=== PATIENT | female | born 1980 | race Caucasian/White ===

== ENCOUNTER 2019-04-11 09:16 | Inpatient (IN) | payer BC ==
[2019-04-11] MEDS ORDERED: Tranexamic Acid 1,000 MG in Sodium Chloride 0.9% 100 ML IV PRN (09:32)
[2019-04-11] MEDS ORDERED: Sodium Chloride 0.9% 10 ML Syringe FLUSH PRN (09:32)
[2019-04-11] MEDS ORDERED: Ondansetron 4 MG/2 ML SDV IVPUSH PRN (09:32)
[2019-04-11] MEDS ORDERED: Lactated Ringers 1,000 ML IV SCH ×2 (09:45)
[2019-04-11] MEDS ORDERED: Oxytocin/Normal Saline 30 UNIT/500 ML BAG IV SCH (09:45)
[2019-04-11] MEDS ORDERED: Citric Acid/Sodium Citrate Solution 30 ML Cup PO ONE (10:00)
[2019-04-11] MEDS ORDERED: ceFAZolin 2 GM in Premix Bag 1 BAG IV ONE (10:00)
[2019-04-11] MEDS ORDERED: Oxytocin/Normal Saline 60 UNIT/1,000 ML BAG ONE (10:52)
--- NOTE | 2019-04-11 13:49 | PCM.PRNOTE ---
- Free Text/Narrative Note: Section Operative Report Date of Surgery: 04/11/19 Surgeon: Radha Lamar MD Salon Receptionist: Misty Riley MD Pre-Operative Diagnosis: History of section, declined Post-Operative Diagnosis: Same Procedure Performed: Repeat low transverse section Anesthesia: Spinal EBL: 800 mL IVF: 1400 mL Drains: Malave catheter with 250 mL of urine output Specimens: None Complications: None apparent Findings: Normal uterus, tubes, and ovaries. Indication and Consent: The patient presented to floor today for scheduled at term due to hx of prior and desire for elective repeat . The patient understood that the risks of section include, but are not limited to, visceral or vascular injury, infection, blood loss and need for blood transfusion, prolonged hospitalization, and reoperation. The patient again stated understanding and desired to proceed. All questions were answered. Procedure in Detail: The patient was taken to the operating room where spinal anesthesia was placed and found to be adequate. 2 grams of cefazolin (Ancef) were given for infection prophylaxis. She was then prepped and draped in routine fashion in dorsal supine position with a left ureña tilt. Malave catheter and pneumoboots were placed. A Pfannenstiel skin incision was made with a scalpel. The incision was carried down to the fascia sharply. The fascia was incised and extended laterally. The inferior aspect of the fascia was grasped with Virgil clamps; the underlying rectus muscle and pyramidalis was dissected off with sharp and blunt technique. In a similar fashion, the superior aspect of the fascia was elevated with Virgil clamps and the rectus muscle was dissected off. Hemostasis was achieved with the Bovie. The rectus musculature was in the midline down to the level of the pubic symphysis. Pre-peritoneal fatty tissue was bluntly dissected to expose the peritoneum. The peritoneum was found to be free of adherent bowel or bladder tissue and entered bluntly. The peritoneal opening was then extended superiorly and inferiorly to the bladder reflection with good visualization of the bladder. The Jaime retractor was inserted. Intraabdominal survey revealed scant, clear peritoneal fluid and thinned-out lower uterine segment. The vesicouterine peritoneum was opened with a pickup and mets, and the bladder flap was developed. The bladder blade was repositioned to keep the bladder out of the operative field. The lower uterine segment was incised with a scalpel. The amniotic sac was ruptured with an Allis clamp and clear fluid was noted. The uterine incision was extended bluntly with lateral and upward traction. The fetus was in cephalic position. The head was elevated out of the maternal pelvis with special attention paid to avoid using the uterine incision as a fulcrum. Gentle fundal pressure was applied once the head was brought into the incision. A vacuum was applied to the head. The was delivered with 1 pull with minimal difficulty. Bulb suctioning of the 's nose and mouth was performed on the operative field. Cord blood was collected. The cord was clamped and cut in standard fashion, and the infant was handed over to the awaiting nursery staff. IV oxytocin was initiated to facilitate uterine contractions. The placenta was delivered intact with manual message of the uterine fundus along with gentle cord traction. The uterus was then exteriorized. The inside of the uterus was gently wiped with a lap sponge to assure complete removal of remaining products of conception. The uterine incision was closed with 0 - Vicryl suture in a running locked fashion. A second imbricating layer of 0- Monocryl was also placed. The incision was inspected and hemostasis was achieved. The ovaries and tubes were visualized and found to be normal. The uterus, tubes, and ovaries were returned to the abdominal cavity. The blood clots and fluid were wiped out of the abdomen and pelvis with moist laparotomy sponges. The uterine incision was re-inspected along with all other incised surfaces and good hemostasis was confirmed. The Jaime retractor was removed. The fascia was then closed with 2-0 looped PDS suture with care not to include any underlying abdominal contents. The skin was closed with 4-0 Monocryl suture on a Gaetano needle in a subcuticular fashion. Sponge and instrument counts were reported as correct times two. Pt tolerated procedure well and was taken to PACU in stable condition. MD Radha Dior MD
--- NOTE | 2019-04-11 13:51 | PCM.DEL ---
L & D Note - General Info Date of Service: 04/11/19 Mother's Due Date: 04/18/19 - Delivery Note Delivery Outcome: Livebirth Infant Delivery Method: Repeat Delivery Mode: Vacuum Extraction Presentation: Vertex Nuchal Cord: None Anesthesia Type: Spinal Laceration: None Placenta: Intact Cord: 3 Vessels Estimated Blood Loss: 800 : Stimulated, Warmed Provider: Radha Lamar Score 1 min: 9 Score 5 min: 9 Delivery Comments (Free Text/Narrative):: Please see procedure note - General Info Date of Service: 04/11/19 - Patient Data Vitals - Most Recent: Last Vital Signs Temp 36.1 C 04/11/19 13:25 Pulse 55 L 04/11/19 13:45 Resp 10 L 04/11/19 13:45 BP 135/72 04/11/19 13:45 Pulse Ox 100 04/11/19 13:45 Weight - Most Recent: 99.337 kg I&O - Last 24 Hours: Intake & Output 04/10/19 04/11/19 04/11/19 22:59 06:59 14:59 Intake Total 50 Output Total 75 Balance -25 Lab Results Last 24 Hours: Laboratory Results - last 24 hr 04/11/19 04/11/19 Range/Units 09:36 09:36 WBC 9.2 (5.0-10.0) 10^3/uL RBC 4.33 (4.2-5.4) 10^6/uL Hgb 13.0 (12.0-16.0) g/dL Hct 39.7 (37.0-47.0) % MCV 91.7 (80-100) fL MCH 30.0 (27.0-34.0) pg MCHC 32.7 L (33.0-35.0) g/dL Plt Count 251 (150-450) 10^3/uL Neut % (Auto) 71.9 (42.2-75.2) % Lymph % (Auto) 13.8 L (20.5-50.1) % [place] % (Auto) 12.8 H (2-8) % Eos % (Auto) 1.2 (1.0-3.0) % Baso % (Auto) 0.3 (0.0-1.0) % Blood Type A POSITIVE Gel Antibody Screen Negative Med Orders - Current: Current Medications Tranexamic Acid 1,000 mg/ (Sodium Chloride) 110 mls @ 660 mls/hr IV ONETIME PRN PRN Reason: Bleeding Oxytocin/Sodium Chloride (Pitocin In Ns 30 Unit/500 Ml) 30 unit in 500 mls @ 2 mls/hr IV TITRATE [facility]; Protocol Last Admin: 04/11/19 13:24 Dose: 2 munits/min, 2 mls/hr Lactated Ringer's (Ringers, Lactated) 1,000 mls @ 125 mls/hr IV ASDIRECTED [facility] Last Admin: 04/11/19 11:00 Dose: 125 mls/hr Lactated Ringer's (Ringers, Lactated) 1,000 mls @ 500 mls/hr IV .BOLUS [facility] Last Admin: 04/11/19 10:10 Dose: 500 mls/hr Ondansetron HCl (Zofran) 8 mg IVPUSH Q6H PRN PRN Reason: Nausea/Vomiting Sodium Chloride (Saline Flush) 10 ml FLUSH ASDIRECTED PRN PRN Reason: Keep Vein Open Discontinued Medications Citric Acid/Sodium Citrate (Bicitra Solution) 30 ml PO ONETIME ONE Stop: 04/11/19 10:01 Last Admin: 04/11/19 11:01 Dose: 30 ml Cefazolin Sodium/Dextrose 2 gm (/ Premix) 50 mls @ 100 mls/hr IV ONETIME ONE Stop: 04/11/19 10:29 Last Admin: 04/11/19 11:02 Dose: 100 mls/hr Oxytocin/Sodium Chloride (Pitocin In Ns 30 Unit/500 Ml) Confirm Administered Dose 60 unit in 1,000 mls @ as directed .ROUTE .STK-MED ONE Stop: 04/11/19 10:53 - Problem List & Annotations (1) History of delivery SNOMED Code(s): 772464809 Code(s): Z98.891 - HISTORY OF UTERINE SCAR FROM PREVIOUS SURGERY Status: Acute Current Visit: Yes (2) History of miscarriage SNOMED Code(s): 134238118 Code(s): Z87.59 - PERSONAL HISTORY OF COMP OF PREG, CHLDBRTH AND THE PUERP Status: Acute Current Visit: Yes (3) Advanced maternal age (AMA) in SNOMED Code(s): 035848325 Code(s): VLJ2207 - Status: Acute Current Visit: Yes - Problem List Review Problem List Initiated/Reviewed/Updated: Yes - My Orders Last 24 Hours: My Active Orders 04/11/19 09:32 Patient Status [ADT] Routine Notify Provider Vital Signs OB [RC] ASDIRECTED POC Labs [RC] ASDIRECTED RT Incentive Spirometry [RC] ASDIRECTED Vital Signs [RC] 00,04,08,12,16,20 Ondansetron [Zofran] 8 mg IVPUSH Q6H PRN Sodium Chloride 0.9% [Saline Flush] 10 ml FLUSH ASDIRECTED PRN Tranexamic Acid [Cyklokapron] 1,000 mg Sodium Chloride 0.9% [Normal Saline] 100 ml IV ONETIME Peripheral IV Insertion Adult [OM.PC] Routine Schedule Procedure [COMM] Per Unit Routine Resuscitation Status Routine 04/11/19 09:33 Peripheral IV Care [RC] 06,14,22 04/11/19 09:45 Lactated Ringers [Ringers, Lactated] 1,000 ml IV .BOLUS Lactated Ringers [Ringers, Lactated] 1,000 ml IV ASDIRECTED Oxytocin/Normal Saline [Pitocin in NS 30 UNIT/500 ML] 30 unit in 500 ml IV TITRATE 04/11/19 Breakfast Nothing Per Oral Diet [DIET] 04/11/19 Dinner Nothing Per Oral Diet [DIET] 04/11/19 Lunch Nothing Per Oral Diet [DIET] - Assessment Assessment:: 38-year-old, now at 39w0d status post repeat LTCS - Plan Plan:: 1. Initiate routine postoperative orders 2. Plans to breastfeed 3. Anticipate discharge 04/14/19 Radha Lamar MD
[2019-04-11] MEDS ORDERED: ePHEDrine 50 MG/ML SDV IVPUSH PRN (13:52)
[2019-04-11] MEDS ORDERED: Naloxone 2 MG/2 ML Syringe IVPUSH PRN (13:52)
[2019-04-11] MEDS ORDERED: diphenhydrAMINE 50 MG/ML SDV IVPUSH PRN (13:52)
[2019-04-11] MEDS ORDERED: Misoprostol 400 MCG (4 X 100 MCG TAB) RECTAL PRN (13:52)
[2019-04-11] MEDS ORDERED: Methylergonovine 0.2 MG/1 ML Amp IM PRN (13:52)
[2019-04-11] MEDS ORDERED: Carboprost Tromethamine 250 MCG/1 ML Amp IM PRN (13:52)
[2019-04-11] MEDS ORDERED: Acetaminophen/oxyCODONE 325-5 MG Tab PO PRN (13:52)
[2019-04-11] MEDS ORDERED: Ondansetron 4 MG/2 ML SDV IV PRN (13:52)
[2019-04-11] MEDS ORDERED: Acetaminophen 325 MG Tab PO PRN (13:52)
[2019-04-11] MEDS ORDERED: Famotidine 20 MG/2 ML SDV IVPUSH ONE (14:43)
[2019-04-11] MEDS ORDERED: Promethazine 25 MG/ML SDV IM ONE (14:44)
[2019-04-11] MEDS: Simethicone 80 MG Tab.Chew PO SCH ×2 (17:02→20:32)
[2019-04-11] MEDS: Lactated Ringers 1,000 ML IV SCH (17:44)
[2019-04-11] MEDS: Ketorolac 30 MG/ML SDV IVPUSH SCH (20:32)
[2019-04-11] MEDS: Docusate Sodium 100 MG Cap PO PRN (20:32)
[2019-04-12] MEDS: Ketorolac 30 MG/ML SDV IVPUSH SCH ×2 (01:50→08:50)
[2019-04-12] MEDS: Lactated Ringers 1,000 ML IV SCH (01:51)
--- NOTE | 2019-04-12 07:29 | PCM.PNPP ---
- General Info Date of Service: 04/12/19 Subjective Update: POD#1 status post repeat section. Patient is doing well. Had quite a bit of vomiting yesterday--this improved with administration of phenergan. Minimal pain this morning, just sore. Tolerating diet well. Has not been out of bed yet. Urine output has been borderline since surgery but has improved the past few hours. No fever or chills. is going well. - Review of Systems General: Reports: Fatigue HEENT: Reports: No Symptoms Pulmonary: Reports: No Symptoms Cardiovascular: Reports: No Symptoms Gastrointestinal: Reports: Abdominal Pain Genitourinary: Reports: No Symptoms Musculoskeletal: Reports: No Symptoms Skin: Reports: No Symptoms - General Info Date of Service: 04/12/19 - Patient Data Vital Signs - Most Recent: Last Vital Signs Temp 36.8 C 04/12/19 04:00 Pulse 73 04/12/19 04:00 Resp 16 04/12/19 04:00 BP 106/65 04/12/19 04:00 Pulse Ox 96 04/12/19 04:00 Weight - Most Recent: 99.337 kg I&O - Last 24 Hours: Intake & Output 04/11/19 04/12/19 04/12/19 22:59 06:59 14:59 Output Total 625 525 Balance -625 -525 Lab Results - Last 24 Hours: Laboratory Results - last 24 hr 04/11/19 04/11/19 Range/Units 09:36 09:36 WBC 9.2 (5.0-10.0) 10^3/uL RBC 4.33 (4.2-5.4) 10^6/uL Hgb 13.0 (12.0-16.0) g/dL Hct 39.7 (37.0-47.0) % MCV 91.7 (80-100) fL MCH 30.0 (27.0-34.0) pg MCHC 32.7 L (33.0-35.0) g/dL Plt Count 251 (150-450) 10^3/uL Neut % (Auto) 71.9 (42.2-75.2) % Lymph % (Auto) 13.8 L (20.5-50.1) % [place] % (Auto) 12.8 H (2-8) % Eos % (Auto) 1.2 (1.0-3.0) % Baso % (Auto) 0.3 (0.0-1.0) % Blood Type A POSITIVE Gel Antibody Screen Negative Med Orders - Current: Current Medications Acetaminophen (Tylenol) 650 mg PO Q6H PRN PRN Reason: mild pain or fever Carboprost Tromethamine (Hemabate Ds) 250 mcg IM ONETIME PRN PRN Reason: Bleeding Diphenhydramine HCl (Benadryl) 25 mg IVPUSH Q6H PRN PRN Reason: Itching or Nausea Docusate Sodium (Colace) 100 mg PO Q12H PRN PRN Reason: Constipation Last Admin: 04/11/19 20:32 Dose: 100 mg Ephedrine Sulfate (Ephedrine Sulfate) 5 mg IVPUSH SEECOMMENT PRN PRN Reason: Other Tranexamic Acid 1,000 mg/ (Sodium Chloride) 110 mls @ 660 mls/hr IV ONETIME PRN PRN Reason: Bleeding Oxytocin/Sodium Chloride (Pitocin In Ns 30 Unit/500 Ml) 30 unit in 500 mls @ 2 mls/hr IV TITRATE [facility]; Protocol Last Titration: 04/11/19 16:25 Dose: 0 munits/min, 0 mls/hr Lactated Ringer's (Ringers, Lactated) 1,000 mls @ 125 mls/hr IV ASDIRECTED [facility] Last Admin: 04/12/19 01:51 Dose: 125 mls/hr Ibuprofen (Motrin) 800 mg PO Q8H PRN PRN Reason: mild pain or fever Ketorolac Tromethamine (Toradol) 15 mg IVPUSH Q6H [facility] Stop: 04/12/19 08:01 Last Admin: 04/12/19 01:50 Dose: 15 mg Methylergonovine Maleate (Methergine) 0.2 mg IM ONETIME PRN PRN Reason: Excessive Vaginal Bleeding Misoprostol (Cytotec) 800 mcg RECTAL ASDIRECTED PRN PRN Reason: Excessive bleeding Naloxone HCl (Narcan) 0.1 mg IVPUSH SEECOMMENT PRN PRN Reason: Respiratory Depression Ondansetron HCl (Zofran) 4 mg IV Q4H PRN PRN Reason: Nausea/Vomiting Oxycodone/Acetaminophen (Percocet 325-5 Mg) 1 tab PO Q4H PRN PRN Reason: Pain (moderate 4-6) Oxycodone/Acetaminophen (Percocet 325-5 Mg) 2 tab PO Q4H PRN PRN Reason: Pain (moderate 4-6) Prenat Multivit/[employer]/Iron/Folic Ac ( Plus Iron) 1 each PO DAILY [facility] Simethicone (Simethicone) 160 mg PO QID [facility] Last Admin: 04/11/19 20:32 Dose: 160 mg Sodium Chloride (Saline Flush) 10 ml FLUSH ASDIRECTED PRN PRN Reason: Keep Vein Open Discontinued Medications Citric Acid/Sodium Citrate (Bicitra Solution) 30 ml PO ONETIME ONE Stop: 04/11/19 10:01 Last Admin: 04/11/19 11:01 Dose: 30 ml Famotidine (Pepcid) 20 mg IVPUSH ONETIME ONE Stop: 04/11/19 14:44 Last Admin: 04/11/19 15:00 Dose: 20 mg Cefazolin Sodium/Dextrose 2 gm (/ Premix) 50 mls @ 100 mls/hr IV ONETIME ONE Stop: 04/11/19 10:29 Last Admin: 04/11/19 11:02 Dose: 100 mls/hr Lactated Ringer's (Ringers, Lactated) 1,000 mls @ 125 mls/hr IV ASDIRECTED [facility] Last Admin: 04/11/19 11:00 Dose: 125 mls/hr Lactated Ringer's (Ringers, Lactated) 1,000 mls @ 500 mls/hr IV .BOLUS [facility] Last Admin: 04/11/19 10:10 Dose: 500 mls/hr Oxytocin/Sodium Chloride (Pitocin In Ns 30 Unit/500 Ml) Confirm Administered Dose 60 unit in 1,000 mls @ as directed .ROUTE .STK-MED ONE Stop: 04/11/19 10:53 Ondansetron HCl (Zofran) 8 mg IVPUSH Q6H PRN PRN Reason: Nausea/Vomiting Promethazine HCl (Phenergan) 12.5 mg IM ONETIME ONE Stop: 04/11/19 14:45 Last Admin: 04/11/19 15:01 Dose: 12.5 mg - Infant Interaction Infant Disposition, : [place] in Room with Family Feeding: Breastfed ; Nursed Well Support Person: - Recovery Exam Fundal Tone: Firm Fundal Level: 2 Fingerbreadths Below Umbilicus Fundal Placement: Midline Lochia Amount: Small Lochia Color: Rubra/Red Perineum Description: Intact, Minimal Bruising/Swelling Episiotomy/Laceration: None Bladder Status: Indwelling Catheter in Place Urinary Elimination: Indwelling Catheter - Exam General: Alert, Oriented HEENT: Mucous Membr. Moist/[place] Lungs: Clear to Auscultation, Normal Respiratory Effort Cardiovascular: Regular Rate, Regular Rhythm, No Murmurs GI/Abdominal Exam: Soft, Tender Extremities: Pedal Edema (1+ bilaterally) Skin: Warm, Dry, Intact Wound/Incisions: Drainage (Unchanged from marked area) - Problem List & Annotations (1) History of delivery SNOMED Code(s): 771280516 Code(s): Z98.891 - HISTORY OF UTERINE SCAR FROM PREVIOUS SURGERY Status: Acute Current Visit: Yes (2) History of miscarriage SNOMED Code(s): 759675344 Code(s): Z87.59 - PERSONAL HISTORY OF COMP OF PREG, CHLDBRTH AND THE PUERP Status: Acute Current Visit: Yes (3) Advanced maternal age (AMA) in SNOMED Code(s): 065814337 Code(s): HPC9916 - Status: Acute Current Visit: Yes - Problem List Review Problem List Initiated/Reviewed/Updated: Yes - My Orders Last 24 Hours: My Active Orders 04/11/19 09:32 Patient Status [ADT] Routine Notify Provider Vital Signs OB [RC] ASDIRECTED POC Labs [RC] ASDIRECTED RT Incentive Spirometry [RC] ASDIRECTED Vital Signs [RC] 00,04,08,12,16,20 Sodium Chloride 0.9% [Saline Flush] 10 ml FLUSH ASDIRECTED PRN Tranexamic Acid [Cyklokapron] 1,000 mg Sodium Chloride 0.9% [Normal Saline] 100 ml IV ONETIME Peripheral IV Insertion Adult [OM.PC] Routine Resuscitation Status Routine 04/11/19 09:33 Peripheral IV Care [RC] 06,14,22 04/11/19 09:45 Oxytocin/Normal Saline [Pitocin in NS 30 UNIT/500 ML] 30 unit in 500 ml IV TITRATE 04/11/19 13:52 Antiembolic Devices [RC] 08,20 Bedrest [RC] ASDIRECTED Communication Order [RC] PER UNIT ROUTINE Communication Order [RC] PER UNIT ROUTINE Communication Order [RC] Per Unit Routine Intake and Output [RC] Q8H Notify Provider Intake and Out [RC] ASDIRECTED RT Incentive Spirometry [RC] Q2HWA Urinary Catheter Removal [RC] 1200 Vital Signs [RC] 00,04,08,12,16,20 Consult to Food And Beverage Attendant [CONS] Routine Acetaminophen [Tylenol] 650 mg PO Q6H PRN Acetaminophen/oxyCODONE [Percocet 325-5 MG] 1 tab PO Q4H PRN Acetaminophen/oxyCODONE [Percocet 325-5 MG] 2 tab PO Q4H PRN Carboprost Tromethamine [Hemabate DS] 250 mcg IM ONETIME PRN Docusate Sodium [Colace] 100 mg PO Q12H PRN Methylergonovine [Methergine] 0.2 mg IM ONETIME PRN Naloxone [Narcan] 0.1 mg IVPUSH SEECOMMENT PRN Ondansetron [Zofran] 4 mg IV Q4H PRN diphenhydrAMINE [Benadryl] 25 mg IVPUSH Q6H PRN ePHEDrine [ePHEDrine sulfate] 5 mg IVPUSH SEECOMMENT PRN miSOPROStoL [Cytotec] 800 mcg RECTAL ASDIRECTED PRN Antiembolic Hose [OM.PC] Per Unit Routine Assess Lochia [WOMSER] Per Unit Routine Assess Uterine Involution [WOMSER] Per Unit Routine Breast Pump [WOMSER] Per Unit Routine Sequential Compression Device [OM.PC] Per Unit Routine 04/11/19 14:00 Lactated Ringers [Ringers, Lactated] 1,000 ml IV ASDIRECTED 04/11/19 17:00 Simethicone 160 mg PO QID 04/11/19 20:00 Ketorolac [Toradol] 15 mg IVPUSH Q6H 04/11/19 Breakfast Clear Liquid Diet [DIET] Nothing Per Oral Diet [DIET] 04/11/19 Lunch Nothing Per Oral Diet [DIET] 04/12/19 09:00 Vit with Ca/FA/Iron [ Plus Iron] 1 each PO DAILY 04/12/19 16:00 Ibuprofen [Motrin] 800 mg PO Q8H PRN 04/13/19 07:00 CBC W/O DIFF,HEMOGRAM [HEME] Routine - Assessment Assessment:: 38-year-old, now at 39w0d POD#1 status post repeat LTCS - Plan Plan:: 1. Continue routine postoperative orders 2. 3. Monitor urine output for 2-3 more hours before removing garcia 4. CBC tomorrow AM 5. Anticipate discharge 04/14/19 Radha Lamar MD
[2019-04-12] MEDS: Simethicone 80 MG Tab.Chew PO SCH ×4 (08:50→21:17)
[2019-04-12] MEDS: Docusate Sodium 100 MG Cap PO PRN ×2 (08:51→21:17)
[2019-04-12] MEDS: Prenatal Multivitamin with Calcium/Folic Acid/Iron Tab PO SCH (08:51)
[2019-04-12] MEDS: Ibuprofen 800 MG Tab PO PRN (17:31)
[2019-04-12] MEDS: Acetaminophen/oxyCODONE 325-5 MG Tab PO PRN (21:18)
[2019-04-13] MEDS: Ibuprofen 800 MG Tab PO PRN ×3 (01:53→18:07)
[2019-04-13] MEDS: Acetaminophen/oxyCODONE 325-5 MG Tab PO PRN ×5 (01:54→20:20)
[2019-04-13] MEDS: Docusate Sodium 100 MG Cap PO PRN ×2 (08:50→20:20)
[2019-04-13] MEDS: Prenatal Multivitamin with Calcium/Folic Acid/Iron Tab PO SCH (08:50)
[2019-04-13] MEDS: Simethicone 80 MG Tab.Chew PO SCH ×4 (08:50→20:20)
[2019-04-13] MEDS ORDERED: Oxytocin/Normal Saline 30 UNIT/500 ML BAG IV ONE (14:49)
[2019-04-14] MEDS ORDERED: Famotidine 20 MG/2 ML SDV ONE (00:16)
[2019-04-14] MEDS: Ibuprofen 800 MG Tab PO PRN (02:04)
[2019-04-14] MEDS: Acetaminophen/oxyCODONE 325-5 MG Tab PO PRN ×2 (02:05→08:46)
[2019-04-14] MEDS: Prenatal Multivitamin with Calcium/Folic Acid/Iron Tab PO SCH (08:45)
[2019-04-14] MEDS: Simethicone 80 MG Tab.Chew PO SCH (08:45)
[2019-04-14] MEDS: Docusate Sodium 100 MG Cap PO PRN (08:46)
[2019-04-14] MEDS ORDERED: Ondansetron 4 MG/2 ML SDV IV ONE (10:28)
[2019-04-14] MEDS ORDERED: Dexamethasone 4 MG/ML SDV IV ONE (10:28)
[2019-04-14] MEDS ORDERED: Lactated Ringers 1,000 ML IV ONE (10:28)
[2019-04-14] MEDS ORDERED: ePHEDrine 50 MG/ML SDV IV ONE (10:28)
[2019-04-14] MEDS ORDERED: Ketorolac 30 MG/ML SDV IVPUSH ONE (10:28)
--- NOTE | 2019-04-14 15:40 | PCM.PNPP ---
- General Info Date of Service: 04/14/19 Subjective Update: PPD#2 from repeat section at 39w0d. Doing well. Has been out of bed but has not showered. Is urinating without difficulty. Passing small amounts of gas. Vaginal bleeding is minimal. Ambulating without difficulty. Tolerating a general diet. No fever or chills. is going well. Functional Status: Reports: Pain Controlled, Tolerating Diet, Ambulating, Urinating. Denies: New Symptoms - Review of Systems General: Reports: No Symptoms HEENT: Reports: No Symptoms Pulmonary: Reports: No Symptoms Cardiovascular: Reports: No Symptoms Gastrointestinal: Reports: No Symptoms Genitourinary: Reports: No Symptoms Musculoskeletal: Reports: Back Pain Skin: Reports: No Symptoms Neurological: Reports: No Symptoms - General Info Date of Service: 04/13/19 - Patient Data Vital Signs - Most Recent: Last Vital Signs Temp 36.9 C 04/14/19 08:00 Pulse 88 04/14/19 08:00 Resp 16 04/14/19 08:00 BP 126/71 04/14/19 08:00 Pulse Ox 99 04/13/19 02:13 Weight - Most Recent: 99.337 kg Med Orders - Current: Current Medications Discontinued Medications Acetaminophen (Tylenol) 650 mg PO Q6H PRN PRN Reason: mild pain or fever Carboprost Tromethamine (Hemabate Ds) 250 mcg IM ONETIME PRN PRN Reason: Bleeding Citric Acid/Sodium Citrate (Bicitra Solution) 30 ml PO ONETIME ONE Stop: 04/11/19 10:01 Last Admin: 04/11/19 11:01 Dose: 30 ml Dexamethasone (Dexamethasone) 8 mg IV .STK-MED ONE Stop: 04/14/19 10:29 Diphenhydramine HCl (Benadryl) 25 mg IVPUSH Q6H PRN PRN Reason: Itching or Nausea Docusate Sodium (Colace) 100 mg PO Q12H PRN PRN Reason: Constipation Last Admin: 04/14/19 08:46 Dose: 100 mg Ephedrine Sulfate (Ephedrine Sulfate) 5 mg IVPUSH SEECOMMENT PRN PRN Reason: Other Ephedrine Sulfate (Ephedrine Sulfate) 40 mg IV .STK-MED ONE Stop: 04/14/19 10:29 Famotidine (Pepcid) 20 mg IVPUSH ONETIME ONE Stop: 04/11/19 14:44 Last Admin: 04/11/19 15:00 Dose: 20 mg Famotidine (Pepcid) Confirm Administered Dose 20 mg .ROUTE .STK-MED ONE Stop: 04/14/19 00:17 Last Admin: 04/14/19 03:27 Dose: Not Given Tranexamic Acid 1,000 mg/ (Sodium Chloride) 110 mls @ 660 mls/hr IV ONETIME PRN PRN Reason: Bleeding Cefazolin Sodium/Dextrose 2 gm (/ Premix) 50 mls @ 100 mls/hr IV ONETIME ONE Stop: 04/11/19 10:29 Last Admin: 04/11/19 11:02 Dose: 100 mls/hr Oxytocin/Sodium Chloride (Pitocin In Ns 30 Unit/500 Ml) 30 unit in 500 mls @ 2 mls/hr IV TITRATE [facility]; Protocol Last Titration: 04/11/19 16:25 Dose: 0 munits/min, 0 mls/hr Lactated Ringer's (Ringers, Lactated) 1,000 mls @ 125 mls/hr IV ASDIRECTED [facility] Last Admin: 04/11/19 11:00 Dose: 125 mls/hr Lactated Ringer's (Ringers, Lactated) 1,000 mls @ 500 mls/hr IV .BOLUS [facility] Last Admin: 04/11/19 10:10 Dose: 500 mls/hr Oxytocin/Sodium Chloride (Pitocin In Ns 30 Unit/500 Ml) Confirm Administered Dose 60 unit in 1,000 mls @ as directed .ROUTE .STK-MED ONE Stop: 04/11/19 10:53 Lactated Ringer's (Ringers, Lactated) 1,000 mls @ 125 mls/hr IV ASDIRECTED [facility] Last Admin: 04/12/19 01:51 Dose: 125 mls/hr Oxytocin/Sodium Chloride (Pitocin In Ns 30 Unit/500 Ml) 30 unit in 500 mls @ as directed IV .STK-MED ONE Stop: 04/13/19 14:50 Lactated Ringer's (Ringers, Lactated) 1,000 mls @ as directed IV .STK-MED ONE Stop: 04/14/19 10:29 Ibuprofen (Motrin) 800 mg PO Q8H PRN PRN Reason: mild pain or fever Last Admin: 04/14/19 02:04 Dose: 800 mg Ketorolac Tromethamine (Toradol) 15 mg IVPUSH Q6H [facility] Stop: 04/12/19 08:01 Last Admin: 04/12/19 08:50 Dose: 15 mg Ketorolac Tromethamine (Toradol) 30 mg IVPUSH .STK-MED ONE Stop: 04/14/19 10:29 Methylergonovine Maleate (Methergine) 0.2 mg IM ONETIME PRN PRN Reason: Excessive Vaginal Bleeding Misoprostol (Cytotec) 800 mcg RECTAL ASDIRECTED PRN PRN Reason: Excessive bleeding Naloxone HCl (Narcan) 0.1 mg IVPUSH SEECOMMENT PRN PRN Reason: Respiratory Depression Ondansetron HCl (Zofran) 8 mg IVPUSH Q6H PRN PRN Reason: Nausea/Vomiting Ondansetron HCl (Zofran) 4 mg IV Q4H PRN PRN Reason: Nausea/Vomiting Ondansetron HCl (Zofran) 4 mg IV .STK-MED ONE Stop: 04/14/19 10:29 Oxycodone/Acetaminophen (Percocet 325-5 Mg) 1 tab PO Q4H PRN PRN Reason: Pain (moderate 4-6) Last Admin: 04/12/19 17:30 Dose: 1 tab Oxycodone/Acetaminophen (Percocet 325-5 Mg) 2 tab PO Q4H PRN PRN Reason: Pain (moderate 4-6) Last Admin: 04/14/19 08:46 Dose: 2 tab Prenat Multivit/[place]/Iron/Folic Ac ( Plus Iron) 1 each PO DAILY [facility] Last Admin: 04/14/19 08:45 Dose: 1 each Promethazine HCl (Phenergan) 12.5 mg IM ONETIME ONE Stop: 04/11/19 14:45 Last Admin: 04/11/19 15:01 Dose: 12.5 mg Simethicone (Simethicone) 160 mg PO QID [facility] Last Admin: 04/14/19 08:45 Dose: 160 mg Sodium Chloride (Saline Flush) 10 ml FLUSH ASDIRECTED PRN PRN Reason: Keep Vein Open - Infant Interaction Infant Disposition, : [place] in Room with Family Infant Feeding: Breastfed Infant; Nursed Well Support Person: - Recovery Exam Fundal Tone: Firm Fundal Level: 2 Fingerbreadths Below Umbilicus Fundal Placement: Midline Lochia Amount: Small Lochia Color: Rubra/Red Perineum Description: Intact, Minimal Bruising/Swelling Episiotomy/Laceration: None Bladder Status: Nonpalpable, Voiding Urinary Elimination: Indwelling Catheter - Exam General: Alert, Oriented Lungs: Clear to Auscultation, Normal Respiratory Effort Cardiovascular: Regular Rate, Regular Rhythm, No Murmurs Extremities: Pedal Edema (1+ bilaterally) Skin: Warm, Dry, Intact Wound/Incisions: Dressing Dry and Intact (No new drainage) Neurological: No New Focal Deficit - Problem List & Annotations (1) History of delivery SNOMED Code(s): 391376686 Code(s): Z98.891 - HISTORY OF UTERINE SCAR FROM PREVIOUS SURGERY Status: Acute (2) History of miscarriage SNOMED Code(s): 557635363 Code(s): Z87.59 - PERSONAL HISTORY OF COMP OF PREG, CHLDBRTH AND THE PUERP Status: Acute (3) Advanced maternal age (AMA) in SNOMED Code(s): 833834629 Code(s): COF4116 - Status: Acute (4) Status post delivery SNOMED Code(s): 154591620, 725475862 Code(s): Z98.891 - HISTORY OF UTERINE SCAR FROM PREVIOUS SURGERY Status: Acute - Problem List Review Problem List Initiated/Reviewed/Updated: Yes - My Orders Last 24 Hours: My Active Orders 04/14/19 11:20 Ready for Discharge [RC] PER UNIT ROUTINE - Assessment Assessment:: 38-year-old, now at 39w0d POD#2 status post repeat LTCS - Plan Plan:: 1. Continue routine postoperative orders 2. 3. Anticipate discharge 04/14/19 Radha Lamar MD
--- NOTE | 2019-04-14 16:07 | PCM.DCSUM1 ---
Discharge Summary - Hospital Course Free Text/Narrative:: 38-year-old now POD#3 status post repeat section at 39w0d Diagnosis: Stroke: No - Discharge Data Discharge Date: 04/14/19 Discharge Disposition: Home, Self-Care 01 Condition: Good - Referral to Home Health Primary Care Physician: Luz Lamar MD - Discharge Diagnosis/Problem(s) (1) History of delivery SNOMED Code(s): 413507069 ICD Code: Z98.891 - HISTORY OF UTERINE SCAR FROM PREVIOUS SURGERY Status: Acute (2) History of miscarriage SNOMED Code(s): 160227980 ICD Code: Z87.59 - PERSONAL HISTORY OF COMP OF PREG, CHLDBRTH AND THE PUERP Status: Acute (3) Advanced maternal age (AMA) in SNOMED Code(s): 544737793 ICD Code: [id number] - Status: Acute (4) Status post delivery SNOMED Code(s): 302197861, 555285096 ICD Code: Z98.891 - HISTORY OF UTERINE SCAR FROM PREVIOUS SURGERY Status: Acute - Patient Summary/Data Operative Procedure(s) Performed: Repeat section Complications: None Consults: Consultations 04/11/19 13:52 Consult to [facility] [CONS] Routine Labs Pending at D/C: None Recommended Follow-up Testing/Procedures: None Planned Operative Procedure(s) after DC: None Hospital Course: Please see subjective section - Patient Instructions Diet: Usual Diet as Tolerated Activity: As Tolerated, No Lifting Over 20 Pounds Driving: Do Not Drive (while on pain medication) Showering/Bathing: May Shower Wound/Incision Care: Keep Operative Site/Wound Site Clean and Dry Notify Provider of: Fever, Increased Pain, Swelling and Redness, Drainage, Nausea and/or Vomiting - Discharge Plan *PRESCRIPTION DRUG MONITORING PROGRAM REVIEWED*: Yes *COPY OF PRESCRIPTION DRUG MONITORING REPORT IN PATIENT GARY: No Home Medications: Home Meds Vit with Ca/FA/Iron [ Plus Iron] 1 tab PO DAILY 03/21/19 [ History] Acetaminophen [Tylenol] 650 mg PO Q6H PRN tablet 04/14/19 [Rx] Acetaminophen/oxyCODONE [Percocet 325-5 MG] 1 tab PO Q4H PRN tablet 04/14/19 [ Rx] Docusate Sodium [Colace] 100 mg PO Q12H PRN cap 04/14/19 [Rx] Ibuprofen [Motrin] 800 mg PO Q8H PRN tablet 04/14/19 [Rx] Patient Handouts: Baby Blues, Home Care Instructions for Mom, Care After Delivery Referrals: Radha Lamar MD [Primary Care Provider] - (6-8 weeks for visit) - Discharge Summary/Plan Comment DC Time >30 min.: No Discharge Summary/Plan Comment: Discharge home today with follow-up in 6-8 weeks for routine care. # 30 tabs Percocet prescribed for pain control. Also recommended ibuprofen and colace. Reasons to return to the clinic or present to the ED were reviewed with the patient, and all questions were answered. - General Info Date of Service: 04/14/19 Subjective Update: POD#3. Patient is doing well. Tolerating a general diet. Ambulating without difficulty. Urinating and passing gas. No bowel movement yet. Vaginal bleeding is light. No fever, chills, dizziness or lightheadedness. is going well. Thinks milk is coming in as her breasts feel heavier this morning. Has done some S&S at the breast. Functional Status: Reports: Pain Controlled, Tolerating Diet, Ambulating, Urinating. Denies: New Symptoms - Review of Systems General: Reports: No Symptoms HEENT: Reports: No Symptoms Pulmonary: Reports: No Symptoms, Sputum Gastrointestinal: Reports: No Symptoms Genitourinary: Reports: No Symptoms Musculoskeletal: Reports: No Symptoms Skin: Reports: No Symptoms Neurological: Reports: No Symptoms - Patient Data Vitals - Most Recent: Last Vital Signs Temp 36.9 C 04/14/19 08:00 Pulse 88 04/14/19 08:00 Resp 16 04/14/19 08:00 BP 126/71 04/14/19 08:00 Pulse Ox 99 04/13/19 02:13 Weight - Most Recent: 99.337 kg Med Orders - Current: Current Medications Discontinued Medications Acetaminophen (Tylenol) 650 mg PO Q6H PRN PRN Reason: mild pain or fever Carboprost Tromethamine (Hemabate Ds) 250 mcg IM ONETIME PRN PRN Reason: Bleeding Citric Acid/Sodium Citrate (Bicitra Solution) 30 ml PO ONETIME ONE Stop: 04/11/19 10:01 Last Admin: 04/11/19 11:01 Dose: 30 ml Dexamethasone (Dexamethasone) 8 mg IV .STK-MED ONE Stop: 04/14/19 10:29 Diphenhydramine HCl (Benadryl) 25 mg IVPUSH Q6H PRN PRN Reason: Itching or Nausea Docusate Sodium (Colace) 100 mg PO Q12H PRN PRN Reason: Constipation Last Admin: 04/14/19 08:46 Dose: 100 mg Ephedrine Sulfate (Ephedrine Sulfate) 5 mg IVPUSH SEECOMMENT PRN PRN Reason: Other Ephedrine Sulfate (Ephedrine Sulfate) 40 mg IV .STK-MED ONE Stop: 04/14/19 10:29 Famotidine (Pepcid) 20 mg IVPUSH ONETIME ONE Stop: 04/11/19 14:44 Last Admin: 04/11/19 15:00 Dose: 20 mg Famotidine (Pepcid) Confirm Administered Dose 20 mg .ROUTE .STK-MED ONE Stop: 04/14/19 00:17 Last Admin: 04/14/19 03:27 Dose: Not Given Tranexamic Acid 1,000 mg/ (Sodium Chloride) 110 mls @ 660 mls/hr IV ONETIME PRN PRN Reason: Bleeding Cefazolin Sodium/Dextrose 2 gm (/ Premix) 50 mls @ 100 mls/hr IV ONETIME ONE Stop: 04/11/19 10:29 Last Admin: 04/11/19 11:02 Dose: 100 mls/hr Oxytocin/Sodium Chloride (Pitocin In Ns 30 Unit/500 Ml) 30 unit in 500 mls @ 2 mls/hr IV TITRATE DAVID; Protocol Last Titration: 04/11/19 16:25 Dose: 0 munits/min, 0 mls/hr Lactated Ringer's (Ringers, Lactated) 1,000 mls @ 125 mls/hr IV ASDIRECTED DAVID Last Admin: 04/11/19 11:00 Dose: 125 mls/hr Lactated Ringer's (Ringers, Lactated) 1,000 mls @ 500 mls/hr IV .BOLUS DAVID Last Admin: 04/11/19 10:10 Dose: 500 mls/hr Oxytocin/Sodium Chloride (Pitocin In Ns 30 Unit/500 Ml) Confirm Administered Dose 60 unit in 1,000 mls @ as directed .ROUTE .STK-MED ONE Stop: 04/11/19 10:53 Lactated Ringer's (Ringers, Lactated) 1,000 mls @ 125 mls/hr IV ASDIRECTED [facility] Last Admin: 04/12/19 01:51 Dose: 125 mls/hr Oxytocin/Sodium Chloride (Pitocin In Ns 30 Unit/500 Ml) 30 unit in 500 mls @ as directed IV .STK-MED ONE Stop: 04/13/19 14:50 Lactated Ringer's (Ringers, Lactated) 1,000 mls @ as directed IV .STK-MED ONE Stop: 04/14/19 10:29 Ibuprofen (Motrin) 800 mg PO Q8H PRN PRN Reason: mild pain or fever Last Admin: 04/14/19 02:04 Dose: 800 mg Ketorolac Tromethamine (Toradol) 15 mg IVPUSH Q6H [facility] Stop: 04/12/19 08:01 Last Admin: 04/12/19 08:50 Dose: 15 mg Ketorolac Tromethamine (Toradol) 30 mg IVPUSH .STK-MED ONE Stop: 04/14/19 10:29 Methylergonovine Maleate (Methergine) 0.2 mg IM ONETIME PRN PRN Reason: Excessive Vaginal Bleeding Misoprostol (Cytotec) 800 mcg RECTAL ASDIRECTED PRN PRN Reason: Excessive bleeding Naloxone HCl (Narcan) 0.1 mg IVPUSH SEECOMMENT PRN PRN Reason: Respiratory Depression Ondansetron HCl (Zofran) 8 mg IVPUSH Q6H PRN PRN Reason: Nausea/Vomiting Ondansetron HCl (Zofran) 4 mg IV Q4H PRN PRN Reason: Nausea/Vomiting Ondansetron HCl (Zofran) 4 mg IV .STK-MED ONE Stop: 04/14/19 10:29 Oxycodone/Acetaminophen (Percocet 325-5 Mg) 1 tab PO Q4H PRN PRN Reason: Pain (moderate 4-6) Last Admin: 04/12/19 17:30 Dose: 1 tab Oxycodone/Acetaminophen (Percocet 325-5 Mg) 2 tab PO Q4H PRN PRN Reason: Pain (moderate 4-6) Last Admin: 04/14/19 08:46 Dose: 2 tab Prenat Multivit/[place]/Iron/Folic Ac ( Plus Iron) 1 each PO DAILY [facility] Last Admin: 04/14/19 08:45 Dose: 1 each Promethazine HCl (Phenergan) 12.5 mg IM ONETIME ONE Stop: 04/11/19 14:45 Last Admin: 04/11/19 15:01 Dose: 12.5 mg Simethicone (Simethicone) 160 mg PO QID [facility] Last Admin: 04/14/19 08:45 Dose: 160 mg Sodium Chloride (Saline Flush) 10 ml FLUSH ASDIRECTED PRN PRN Reason: Keep Vein Open - Exam General: Reports: Alert, Oriented HEENT: Reports: Pupils Equal, Mucous Membr. Moist/[place] Lungs: Reports: Clear to Auscultation, Normal Respiratory Effort Cardiovascular: Reports: Regular Rate, Regular Rhythm, No Murmurs GI/Abdominal Exam: Soft, Non-Tender Extremities: Pedal Edema (1+ bilaterally, slightly improved from yesterday) Skin: Reports: Warm, Dry, Intact Wound/Incisions: Reports: Healing Well, No Drainage. Denies: Erythema
== END 2019-04-14 12:55 | disposition home or self-care (01) | DRG 540 ==
LOC: DL.OB 09:16 → UNDOADMOB 09:16 → DL.OB 09:32 → EDSTATUS 12:00 → DL.OB 12:32 → OBSVTOIN 12:32
PROVIDERS: ADMIT Family Medicine; ATTEND Family Medicine
PROC: 10D00Z1 Extraction of Products of Conception, Low, Open Approach (ICD-10-PCS; principal; 2019-04-11)
DX: O34.211 Maternal care for low transverse scar from previous cesarean delivery (principal); Z37.0 Single live birth; Z3A.39 39 weeks gestation of pregnancy
CPT/HCPCS: 36415; 59025; 85025; 85027; 86850; 86900; 86901; 94010; A9270-GY; J0690; J1100; J1885; J2405; J2550; J2590; J3490; J7120